=== PATIENT | female | born 1965 | race Asian ===

== ENCOUNTER 2020-02-18 07:38 | Day surgery (SDC) | payer OTHER, SELFPAY ==
[~2020-02-18] VITALS: Ht 158 cm; Wt 59.0 kg
[2020-02-18] MEDS ORDERED: diphenhydrAMINE 50 MG/ML VIAL ONE (09:09)
[2020-02-18] MEDS ORDERED: fentaNYL citrate 0.05 MG/ML VIAL ONE (09:10)
[2020-02-18] MEDS ORDERED: MIDAZOLAM 2 MG/2 ML VIAL ONE (09:10)
[2020-02-18] MEDS ORDERED: MIDAZOLAM 5 MG/5 ML VIAL ONE (09:10)
[2020-02-18] MEDS ORDERED: fentaNYL citrate 0.05 MG/ML VIAL IVP ONE (12:10)
[2020-02-18] MEDS ORDERED: MIDAZOLAM 2 MG/2 ML VIAL IVP ONE (12:10)
== END 2020-02-18 10:58 | disposition home or self-care (01) ==
LOC: MDS 07:38 → MFCC 07:39 → MDS 10:58
PROVIDERS: ATTEND Internal Medicine Gastroenterology
DX: Z12.11 Encounter for screening for malignant neoplasm of colon (principal); K63.5 Polyp of colon; K64.8 Other hemorrhoids; I10 Essential (primary) hypertension; Z80.0 Family history of malignant neoplasm of digestive organs; Z98.890 Other specified postprocedural states; Z20.828 Contact with and (suspected) exposure to other viral communicable diseases
CPT/HCPCS: 45385; 87426; J2250; J3010; U0003; J1200